=== PATIENT | female | born 1960 | race Caucasian/White ===

== ENCOUNTER 2017-07-01 12:24 | Day surgery (SDC) | payer OTHER ==
[2017-07-01] MEDS ORDERED: FENTAnyl 50 MCG/ML VIAL (15:26)
[2017-07-01] MEDS ORDERED: MIDAZOLAM 1 MG/ML 2 ML INJ ×2 (15:27)
== END 2017-07-01 15:51 | disposition home or self-care (01) ==
LOC: GIL 12:24
DX: Z12.11 Encounter for screening for malignant neoplasm of colon (principal); D12.4 Benign neoplasm of descending colon; K57.90 Diverticulosis of intestine, part unspecified, without perforation or abscess without bleeding; K64.8 Other hemorrhoids
CPT/HCPCS: 45385; 88305